=== PATIENT | female | born 1995 | race Hispanic/Latino ===

== ENCOUNTER 2019-03-31 18:43 | Emergency (ER) | payer SELFPAY ==
[2019-03-31 19:19] LABS: #Eosinphils 0.1 thou/uL (0.0-0.7); #Lymphocytes 2.7 thou/uL (1.20-3.40); #Monocytes 0.5 thou/uL (0.11-0.59); #Neutrophils 6.9 thou/uL (1.40-6.50); %Basophils 0.4 % (0.0-1.0); %Eosinophils 0.7 % (0.0-10.0); %Lymphocytes 26.5 % (21.0-51.0); %Monocytes 4.9 % (0.0-10.0); %Neutrophils 67.5 % (42.0-75.0); Hemoglobin 13.7 g/dL (12.0-16.0); Mean Corpuscular HGB CONC 33.4 g/dL (32.0-36.0); Mean Corpuscular Hemoglobin 29.6 pg (27.0-31.0); Mean Corpuscular Volume 88.8 fL (78.0-98.0); Platelet Count 251 thou/uL (130-400); RBC Distribution Width 11.1 % (11.5-14.5); Red Blood Cell (RBC) Count 4.62 mill/uL (4.20-5.40); White Blood Cell (WBC) Count 10.2 thou/uL (4.8-10.8)
[2019-03-31 19:31] LABS: BHCG - Serum POSITIVE (NEGATIVE); Pregs Control Background? CLEAR/WHITE (CLR/WHITE); Pregs Control Bar Appear? YES (CONTROL BAR)
[2019-03-31 20:22] LABS: Bacteria/HPF None Seen HPF (None Seen); Bilirubin Negative (Negative); Blood, Urine 2+ (Negative); Clarity Clear (Clear); Glucose, Urine (Dipstick) Normal (Negative); Leukocyte 75 Leu/uL (Negative); Nitrite Negative (Negative); Protein, Urine (Dipstick) Negative (Neg-Trace); RBC/HPF 0-3 HPF (0-3); Urobilinogen Normal mg/dL (Less than 2); WBC/HPF 0-3 HPF (0-3)
== END 2019-03-31 21:22 | disposition home or self-care (01) ==
LOC: ERS 18:43
DX: O99.89 Other specified diseases and conditions complicating pregnancy, childbirth and the puerperium (principal); R10.30 Lower abdominal pain, unspecified
CPT/HCPCS: 36415; 81003; 81015; 84702; 84703; 85025; 86900; 86901; 93005

== ENCOUNTER 2019-04-02 10:41 | Emergency (ER) | payer SELFPAY ==
--- NOTE | 2019-04-02 13:18 | ULT ---
EXAM: Pelvic ultrasound HISTORY: Pelvic pain COMPARISON: None TECHNIQUE: Multiple grayscale and color Doppler images were obtained in a pelvic ultrasound. Spectral analysis of the Doppler waveforms of the ovaries were performed. FINDINGS: CERVIX: No evidence of nabothian cysts. UTERUS: Normal in size without focal abnormality. ENDOMETRIAL STRIPE: 11 mm. A small amount of free fluid is seen in the pelvis. RIGHT OVARY: Not definitely visualized. A 5.1 cm cystic structure in the midline posterior to the nenita moise may represent a cyst emanating from a more midline right ovary. LEFT OVARY: Normal flow without focal mass. IMPRESSION: Cystic structure posterior uterus may represent a right ovarian cyst/follicle. A follow-u p ultrasound in 6 weeks is recommended to ensure resolution.
== END 2019-04-02 13:44 | disposition home or self-care (01) ==
LOC: ERS 10:41
DX: O20.0 Threatened abortion (principal); Z3A.01 Less than 8 weeks gestation of pregnancy
CPT/HCPCS: 36415; 76856; 84702

== ENCOUNTER 2019-04-04 15:54 | Emergency (ER) | payer OTHER, SELFPAY ==
[2019-04-04 16:30] LABS: #Monocytes 0.4 thou/uL (0.11-0.59); #Neutrophils 6.2 thou/uL (1.40-6.50); %Basophils 0.5 % (0.0-1.0); %Eosinophils 0.4 % (0.0-10.0); %Lymphocytes 22.6 % (21.0-51.0); %Monocytes 4.2 % (0.0-10.0); %Neutrophils 72.2 % (42.0-75.0); Hemoglobin 14.1 g/dL (12.0-16.0); Mean Corpuscular Hemoglobin 29.4 pg (27.0-31.0); Mean Corpuscular Volume 88.8 fL (78.0-98.0); Platelet Count 243 thou/uL (130-400); RBC Distribution Width 11.3 % (11.5-14.5); Red Blood Cell (RBC) Count 4.79 mill/uL (4.20-5.40); White Blood Cell (WBC) Count 8.6 thou/uL (4.8-10.8)
[2019-04-04 16:51] LABS: ALT (SGPT) 9 U/L (8-55); AST (SGOT) 14 U/L (5-34); Albumin 4.7 g/dL (3.5-5.0); Alkaline Phosphatase 57 U/L (40-110); Anion Gap 12 mmol/L (10-20); BUN (Urea Nitrogen) 10 mg/dL (7.0-18.7); Bilirubin, Total 0.6 mg/dL (0.2-1.2); Calc. Creatinine Clearance 0 mL/min (70-130); Calcium 9.4 mg/dL (7.8-10.44); Carbon Dioxide 26 mmol/L (22-29); Chloride 105 mmol/L (98-107); Estimated GFR-MDRD Greater than 90; Globulin 3.1 g/dL (2.4-3.5); Glucose 90 mg/dL (70-105); Protein, Total 7.8 g/dL (6.0-8.3); Sodium 139 mmol/L (136-145)
[2019-04-04 19:00] LABS: Bilirubin Negative (Negative); Blood, Urine Trace (Negative); Clarity Turbid (Clear); Glucose, Urine (Dipstick) Normal (Negative); Leukocyte 250 Leu/uL (Negative); Nitrite Negative (Negative); Protein, Urine (Dipstick) 10 mg/dL (Neg-Trace); RBC/HPF 0-3 HPF (0-3); Urobilinogen Normal mg/dL (Less than 2)
[2019-04-04 19:06] LABS: Bacteria/HPF 1+ HPF (None Seen)
--- NOTE | 2019-04-04 20:22 | ULT ---
EXAM: TRANSABDOMINAL AND ENDOVAGINAL PELVIC ULTRASOUND: 04/04/19 HISTORY: patient. Back pain. Evaluate for ectopic . COMPARISON: 04/02/2019 TECHNIQUE: Transabdominal and endovaginal imaging of the pelvis is performed. Ovaries are interrogated with macdonald scale, color flow, Doppler imaging, with spectral analysis. FINDINGS: Uterus is identified, without a myometrial mass. Uterus measures 8.0 x 4.1 x 6.5 cm. Within the endom etrium, no gestational sac, yolk sac or pole. Endometrial diameter is 1 cm. Left ovary has a normal echotexture measuring 2.2 x 2.6 x 1.7 cm. There is a small amount of fluid ad jacent to the left ovary. In the right adnexa, there is a well circumscribed anechoic focus with thi n giron measuring 6.1 x 6.1 x 4.0 cm. Normal appearing right ovary is not appreciated. No fluid in t he right adnexa. OVARIAN DOPPLER Vascular flow to the left ovary. IMPRESSION: 1. Redemonstration of an anechoic focus in the right adnexa likely representing a ovarian cyst. 2. No sonographic evidence of a gestational sac, yolk sac or pole. Serum beta HCG is repor dhruv to be 1747. Follow-up ultrasound and serial beta HCG is recommended for a differential that inclu rocio an early intrauterine versus a sonographically occult ectopic . POS: [facility]
--- NOTE | 2019-04-06 13:57 | EKG ---
Test Reason : Blood Pressure : / mmHG Vent. Rate : 070 BPM Atrial Rate : 070 BPM P-R Int : 110 ms QRS Dur : 088 ms QT Int : 364 ms P-R-T Axes : 053 059 039 degrees QTc Int : 393 ms Sinus rhythm with short MT Otherwise normal ECG Confirmed by PASCUAL DAMICO DO ([id number]), editor trade journal TALIA EDGE ([id number]) on 04/06/2019 1:57:03 PM Referred By: Confirmed By:PASCUAL DAMICO DO
== END 2019-04-04 21:18 | disposition home or self-care (01) ==
LOC: ERS 15:54
DX: O34.81 Maternal care for other abnormalities of pelvic organs, first trimester (principal); N83.201 Unspecified ovarian cyst, right side; O23.41 Unspecified infection of urinary tract in pregnancy, first trimester; Z3A.01 Less than 8 weeks gestation of pregnancy
CPT/HCPCS: 36415; 76856; 80053; 81003; 81015; 84702; 85025; 86900; 86901; 87086; 87804; 93005

== ENCOUNTER 2019-04-07 11:12 | Emergency (ER) | payer SELFPAY ==
--- NOTE | 2019-04-07 13:19 | ULT ---
EXAM: Transabdominal and transvaginal pelvic ultrasound with Doppler PROVIDED CLINICAL HISTORY: Vaginal bleeding, positive test COMPARISON: 04/04/2019 FINDINGS: No evidence for an intrauterine gestation. Stable cystic structure in the right adnexal region. The r ight ovary is not distinctly identified. The left ovary appears sonographically normal. Color Doppler and spectral analysis of the left ovarian waveform demonstrates normal flow. There is no evid ence for significant free pelvic fluid. IMPRESSION: No sonographic evidence for an intrauterine gestational sac. Correlation with beta hCG values is nece ssary. Ectopic cannot be excluded on the basis of this study alone.
[2019-04-07] MEDS ORDERED: METHOTREXATE SODIUM IM SCH (15:30)
[2019-04-07] MEDS ORDERED: PRE FILLED IM SCH (15:30)
--- NOTE | 2019-04-07 20:46 | CON ---
DATE OF CONSULTATION: 04/07/2019 CONSULTING PROVIDER: Lavell Harris M.D. LOCATION: [place], [place]. HISTORY OF PRESENT ILLNESS: The patient is a 24-year-old, G4, P4, who presents for lower abdominal pain and cramping as well as vaginal bleeding for the last several weeks. The patient has had several trips to the ER recently for similar symptoms. Her most recent visit was on 04/04/2019. At that time, she had a quantitative beta hCG, which was 1747. She can return on today on the and repeat quantitative beta hCG was 2419. She had transvaginal ultrasound done on 03/20/2018, which showed no sonographic evidence for an intrauterine gestational sac. Additionally, there was a stable cystic structure in the right adnexal region. The right ovary was not distinctly identified and the left appeared sonographically normal. Doppler analysis of the left ovary waveform showed normal flow. Then, there was no evidence of significant free pelvic fluid. On discussion with the patient, she reports intermittent light bleeding that first occurred approximately 3 weeks ago and then stopped and subsequently resumed over the last 2 to 3 days. She reported associated abdominal cramping as well. Denied any fever, chills, chest pain, shortness of breath, nausea, vomiting, diarrhea, or constipation. Long discussion has had with the patient regarding likely diagnosis of ectopic as well as the risks associated with untreated ectopic including worst case scenario of maternal . Additionally, risk of infection, bleeding, requiring transfusion, and potential removal of maternal anatomy if required. Treatment options were discussed and it was recommended by the physicians that the patient receive a single dose of methotrexate for treatment of presumptive ectopic . The risks, benefits, and alternatives of this medication were discussed in detail, then the patient was consulting with her friends and family at the end of the evaluation in regard to receiving this medication. It was discussed with the patient if she does opt for methotrexate therapy that she will need a repeat beta hCG on this upcoming 04/10/2019 as well as 04/13/2019 now to trend her quantitative hCG levels. PAST MEDICAL HISTORY: None PAST SURGICAL HISTORY: section x 2, appendectomy HEALTH PROMOTION EDUCATOR HISTORY: No history of STDs or pelvic infections. Prior x 2. MEDICATIONS: vitamin ALLERGIES: NKDA SOCIAL: Negative for tobacco, alcohol, or drug abuse. FAMILY HISTORY: Non-contributory REVIEW OF SYSTEMS: GENERAL: The patient denies fever or chills. CARDIOVASCULAR: The patient denies chest pain. RESPIRATORY: The patient denies shortness of breath. ABDOMEN: The patient reports mild abdominal pain. Denies nausea, vomiting, diarrhea, or constipation. : The patient denies dysuria. The patient reports vaginal bleeding. NEUROLOGIC: The patient denies any focal deficit. No weakness, malaise, or headache. PHYSICAL EXAMINATION: VITAL SIGNS: Blood pressure 112/57, pulse is 73, respiratory rate is 18, temperature is 98.2, and the patient's O2 saturations are 100% on room air. GENERAL: No acute distress. Resting comfortably in bed. HEENT: Head is normocephalic and atraumatic. Extraocular muscles intact. No conjunctival injection. Trachea midline. RESPIRATORY: Equal rise and fall. No paradoxical breathing. ABDOMEN: Mildly tender to palpation. Otherwise, soft and nondistended without rebound or guarding. No peritoneal signs are present. PSYCHIATRIC: The patient mildly upset, tearful on exam. ASSESSMENT AND PLAN: The patient's clinical picture of vaginal bleeding for several weeks with plateauing hCG levels and with no sonographic evidence of intrauterine at an hCG level of almost 2500 indicates an abnormal . Ectopic cannot be ruled out and the patient was counseled on our recommendation of single dose of methotrexate at 50 mg/m2 IM with repeat beta hCG levels on day #4 and day #7 of therapy. Those labs have been ordered and given to the ER nurse and sent to laboratory, and the patient was given the original copy as well. Results are to be called to the on-call laborist when the patient has those labs drawn. Again, importance of appropriate followup was discussed with the patient. Additionally, I discussed the risks, benefits, and alternatives to methotrexate therapy. The patient was advised to avoid significant sun exposure, as well as anything with high folic acid content, such as leafy, green vegetables, vitamins and folic acid supplementation. Job ID: [id number] MTDD
--- NOTE | 2019-04-11 10:45 | PRG ---
DATE OF SERVICE: 04/11/2019 DATE OF NOTE: 04/11/19 TIME OF EVALUATION: Time is roughly 0959 hours. Please put this informal consult with Dr. Jaimes. In brief, this patient arrived first on April 04 with a beta-hCG of 1647. She returned on April 07 with a beta-hCG of 2419. On that day, she received methotrexate with another provider. She had a repeat beta-hCG on April 10, but the ACTUARIAL SCIENCE PROFESSOR team was not notified. She presented today with Dr. Jaimes and his team for followup. The beta-hCG from April 10 was 3357, which is day 4 after her methotrexate. The patient has another beta-hCG, which is scheduled on April 14, which will be day 7 after methotrexate. I discussed with Dr. Jaimes that as long as the patient is clinically stable with a soft abdomen and vital signs within normal limits, the rise in beta-hCG on day 4 is a normal response as the trophoblastic tissue releases beta-hCG. Failure is to find as clinical deterioration or a failure to drop 15% from day 4 to day [address] and [address] I advised Dr[address] Jaimes to give her ER instructions and followup on day 7, which is on April 14. It is important to note that the patient does have 2M numbers under her name, one M number is [id number] and the other is [id number]. These need to be consolidated. Again, this is an informal phone consult for ACTUARIAL SCIENCE PROFESSOR record, but the patient was not seen by me as she was evaluated by Dr. Jaimes. Job ID: [id number]
== END 2019-04-07 16:22 | disposition home or self-care (01) ==
LOC: ERS 11:12
DX: O99.89 Other specified diseases and conditions complicating pregnancy, childbirth and the puerperium (principal); R10.31 Right lower quadrant pain
CPT/HCPCS: 36415; 76856; 84702; 96372; J9250

== ENCOUNTER 2019-05-03 09:26 | Emergency (ER) | payer SELFPAY ==
[2019-05-03 10:01] LABS: #Monocytes 0.3 thou/uL (0.11-0.59); #Neutrophils 3.2 thou/uL (1.40-6.50); %Basophils 0.6 % (0.0-1.0); %Eosinophils 0.5 % (0.0-10.0); %Lymphocytes 36.3 % (21.0-51.0); %Monocytes 6.1 % (0.0-10.0); %Neutrophils 56.4 % (42.0-75.0); Hemoglobin 13.9 g/dL (12.0-16.0); Mean Corpuscular HGB CONC 34.5 g/dL (32.0-36.0); Mean Corpuscular Hemoglobin 30.8 pg (27.0-31.0); Mean Corpuscular Volume 89.4 fL (78.0-98.0); Mean Platelet Volume 8.9 fL (7.4-10.4); Platelet Count 250 thou/uL (130-400); RBC Distribution Width 11.5 % (11.5-14.5); Red Blood Cell (RBC) Count 4.52 mill/uL (4.20-5.40); White Blood Cell (WBC) Count 5.6 thou/uL (4.8-10.8)
[2019-05-03 10:20] LABS: ALT (SGPT) 8 U/L (8-55); AST (SGOT) 13 U/L (5-34); Albumin 4.7 g/dL (3.5-5.0); Alkaline Phosphatase 58 U/L (40-110); Anion Gap 12 mmol/L (10-20); BUN (Urea Nitrogen) 11 mg/dL (7.0-18.7); Bilirubin, Total 0.6 mg/dL (0.2-1.2); Calc. Creatinine Clearance 0 mL/min (70-130); Carbon Dioxide 27 mmol/L (22-29); Chloride 105 mmol/L (98-107); Estimated GFR-MDRD Greater than 90; Globulin 3.1 g/dL (2.4-3.5); Glucose 92 mg/dL (70-105); Potassium 4.2 mmol/L (3.5-5.1); Protein, Total 7.8 g/dL (6.0-8.3); Sodium 140 mmol/L (136-145)
[2019-05-03 11:24] LABS: Bacteria/HPF None Seen HPF (None Seen); Bilirubin Negative (Negative); Blood, Urine 3+ (Negative); Clarity Clear (Clear); Glucose, Urine (Dipstick) Normal (Negative); Leukocyte 75 Leu/uL (Negative); Nitrite Negative (Negative); Protein, Urine (Dipstick) Negative (Neg-Trace); Urobilinogen Normal mg/dL (Less than 2)
[2019-05-03 12:04] LABS: BHCG - Serum POSITIVE (NEGATIVE); Pregs Control Background? CLEAR/WHITE (CLR/WHITE); Pregs Control Bar Appear? YES (CONTROL BAR)
--- NOTE | 2019-05-03 14:02 | ULT ---
ULTRASOUND PELVIC ULTRASOUND TRANSVAGINAL DOPPLER DUPLEX: 05/03/19 HISTORY: 24-year-old female with vaginal bleeding. TECHNIQUE: Transabdominal transducer used to evaluate intrapelvic contents using the urinary bladder as an acous tic window. Endovaginal transducer used to visualize intrapelvic contents in greater detail. Color fl ow Doppler and Pulsed Doppler spectral waveform analysis of ovaries. FINDINGS: Uterus: 8.5 x 4 x 5.5 cm. Retroverted/retroflexed. Endometrial stripe: 0.2 cm (2 mm). No gestational sac. Right ovary: 4 x 2 x 3.5 cm Left ovary: 3.5 x 2 x 2 cm Uterine leiomyoma (fibroid): None. Blood flow in both ovaries: Demonstrated. Ovarian cyst (defined as 2 cm or greater): None. However, there are multiple bilateral peripheral pro minent ovarian follicles. Free fluid in the cul-de-sac: None. IMPRESSION: 1. Possibility of polycystic ovary disease. Clinical correlation recommended. 2. Otherwise negative. MILI Wolfe POS: [facility]
== END 2019-05-03 13:14 | disposition home or self-care (01) ==
LOC: ERS 09:26
DX: N93.9 Abnormal uterine and vaginal bleeding, unspecified (principal)
CPT/HCPCS: 36415; 76815; 80053; 81003; 81015; 84702; 84703; 85025